=== PATIENT | male | born 1990 | race Caucasian/White ===

== ENCOUNTER 2016-11-20 17:39 | Emergency (ER) | payer BC ==
[~2016-11-20] VITALS: Ht 188 cm; Wt 81.1 kg
[2016-11-20 17:42] VITALS: Ht 188 cm; Wt 81.1 kg
--- OUTSIDE RECORDS SUMMARY | 2016-11-20 17:43 | XMS REPORT | Referral Summary ---
Author Author [facility] Organization [facility] Address Unknown Phone Unavailable Care Team Providers Care Ship Scaler Name Role Phone Christina Dasilva Primary Care Physician [phone] Encounter VC Date(s): 12/08/14 - 12/08/14 [facility], [facility] [address] [place] [address] [facility] Discharge Diagnosis: Depression Discharge Diagnosis: Anxiety disorder Discharge Disposition: 01-Home or Self Care Attending Physician: Vernon Dasilva DO Vital Signs Most recent to 1 oldest [Reference Range]: Temperature Oral 36.7 degC [35.8-37.3 degC] (12/08/14 3:24 PM) Peripheral Pulse 99 bpm Rate [60-100 bpm] (12/08/14 3:24 PM) Respiratory Rate 18 br/min [14-20 br/min] (12/08/14 3:24 PM) Blood Pressure 120/74 mmHg [90-140/60-90 mmHg] (12/08/14 3:24 PM) Problem List Condition Effective Dates Status Health Status Informant Peripheral Resolved neuropathy(Confirmed ) Tobacco Active patient user(Confirmed) Allergies, Adverse Reactions, Alerts Substance Reaction Severity Status Keflex1 Active 1Swelling. Medications clonazePAM 2 mg oral tablet 2 mg 1 tabs, Oral, BID, # 60 tabs, 0 Refill(s) Start Date: 05/16/15 Status: Ordered [place] 10 mg-325 mg oral tablet 1 tabs, Oral, q4hr, as needed for pain, # 50 tabs, 0 Refill(s) Start Date: 04/22/15 Status: Ordered venlafaxine 75 mg oral capsule, extended release 3 caps, Oral, Daily, # 90 caps, 5 Refill(s), Pharmacy: [facility] #[id number] , 3 caps Oral Daily Start Date: 11/10/14 Status: Ordered Results No data available for this section Immunizations Vaccine Date Refusal Reason human papillomavirus vaccine 03/25/12 influenza virus vaccine, live 03/25/12 Procedures Procedure Date Related Diagnosis Body Site H/O oral surgery 2009 peripheral neuropathy surgery1 2002 1free of disease Social History Social History Type Response Smoking Status Current every day smoker; Type: Cigarettes; Tobacco use per day: Pack Assessment and Plan Extracted from: Title: Depression Disease Author: Venron Dasilva DO Date: 12/08/14 Management * Impression and Plan Diagnosis Anxiety disorder (ICD9 300.00, Discharge, Medical). Depression (ICD9 311, Discharge, Medical). Patient Instructions: Counseled: Patient, Regarding diagnosis, Regarding treatment, Regarding medications, Diet, Activity, Verbalized understanding.
--- OUTSIDE RECORDS SUMMARY | 2016-11-20 17:43 | XMS REPORT | Referral Summary ---
Author Author [facility] Organization [facility] Address Unknown Phone Unavailable Care Team Providers Care Dehydration Plant Operator Name Role Phone Christina Dasilva Primary Care Physician [phone] Encounter VC Date(s): 12/08/14 - 12/08/14 [facility], [facility] [address] [place] [address] [facility] Discharge Diagnosis: Depression Discharge Diagnosis: [...] 0 Refill(s) Start Date: 05/16/15 Status: Ordered [place] 10 mg-325 mg oral tablet 1 tabs, Oral, q4hr, as needed for pain, # 50 tabs, 0 Refill(s) Start Date: 04/22/15 Status: Ordered venlafaxine 75 mg oral capsule, extended release 3 caps, Oral, Daily, # 90 caps, 5 Refill(s), Pharmacy: [facility] #[id number] , 3 caps Oral Daily Start Date: [...] Plan Extracted from: Title: Depression Disease Author: Vernon Dasilva DO Date: 12/08/14 Management * Impression and Plan Diagnosis Anxiety disorder (ICD9 300.00, Discharge, Medical). Depression (ICD9 311, Discharge, Medical). Patient Instructions: Counseled: Patient, Regarding diagnosis, Regarding treatment, Regarding medications, Diet, Activity, Verbalized understanding.
--- OUTSIDE RECORDS SUMMARY | 2016-11-20 17:43 | XMS REPORT | Referral Summary ---
Author Author [facility] Organization [facility] Address Unknown Phone Unavailable Care Team Providers Care Plow Mechanic Name Role Phone Christina Dasilva Primary Care Physician [phone] Encounter VC Date(s): 04/22/15 - 04/22/15 [facility] [address] [place] [address] [facility] Discharge Diagnosis: Chronic prostatitis Discharge Diagnosis: Atypical depression Discharge Diagnosis: Anxiety disorder Discharge Diagnosis: High risk sexual behavior Discharge Disposition: 01-Home or Self Care Attending Physician: Vernon Dasilva DO Vital Signs Most recent to 1 oldest [Reference Range]: Temperature Oral 36.8 degC [35.8-37.3 degC] (04/22/15 10:08 AM) Peripheral Pulse 83 bpm Rate [60-100 bpm] (04/22/15 10:08 AM) Respiratory Rate 14 br/min [14-20 br/min] (04/22/15 10:08 AM) Blood Pressure 120/68 mmHg [90-140/60-90 mmHg] (04/22/15 10:08 AM) SpO2 98 % (04/22/15 10:08 AM) Problem List Condition Effective Dates Status Health Status Informant Peripheral Resolved neuropathy(Confirmed ) Tobacco Active patient user(Confirmed) Allergies, Adverse Reactions, Alerts Substance Reaction Severity Status Keflex1 Active 1Swelling. Medications clonazePAM 1 mg oral tablet 1 mg 1 tabs, Oral, BID, # 60 tabs, 0 Refill(s), Indication: anxiety Start Date: 08/16/15 Status: Ordered clonazePAM 2 mg oral tablet 2 mg 1 tabs, Oral, BID, # 60 tabs, 0 Refill(s) Start Date: 07/20/15 Status: Ordered venlafaxine 75 mg oral capsule, extended release 3 caps, Oral, Daily, # 90 caps, 5 Refill(s), Pharmacy: [facility] #[id number] , 3 caps Oral Daily Start Date: 11/10/14 Status: Ordered Results Chemistry Most recent to 1 oldest [Reference Range]: Sodium Lvl [135-144 139 mEq/L mEq/L] (04/22/15 11:10 AM) Potassium Lvl 4.3 mEq/L [3.5-5.2 mEq/L] (04/22/15 11:10 AM) Chloride [99-111 105 mEq/L mEq/L] (04/22/15 11:10 AM) CO2 [23-31 mEq/L] 29 mEq/L (04/22/15 11:10 AM) AGAP [3-20] 5 (04/22/15 11:10 AM) BUN [9-21 mg/dL] 7 mg/dL *LOW* (04/22/15 11:10 AM) Glucose Lvl [70-99 91 mg/dL mg/dL] (04/22/15 1110 AM) Creatinine Lvl 0.89 mg/dL [1.00-1.70 mg/dL] *LOW* (04/22/15 11:10 AM) eGFR [>60 mL/min] >60 mL/min 1 (04/22/15 1110 AM) Calcium Lvl 10.0 mg/dL [8.9-10.5 mg/dL] (04/22/15 11:10 AM) Albumin Lvl [3.5-5.0 4.8 gm/dL gm/dL] (04/22/15 1110 AM) Total Protein 6.9 gm/dL [6.4-8.3 gm/dL] (04/22/15 11:10 AM) Globulin [1.8-4.0 2.1 gm/dL gm/dL] (04/22/15 11:10 AM) ALT [0-55 U/L] 14 U/L (04/22/15 1110 AM) AST [5-34 U/L] 16 U/L (04/22/15 11:10 AM) Alk Phos [40-150 83 U/L U/L] (04/22/15 1110 AM) Bili Total [0.2-1.2 0.6 mg/dL mg/dL] (04/22/15 11:10 AM) Hep A IgM Negative (04/22/15 11:10 AM) Hep Bs Ag Negative (04/22/15 11:10 AM) Hep C Ab Negative (04/22/15 11:10 AM) Hep B Core IgM Negative (04/22/15 11:10 AM) HIV 1 and 2 Abs Negative (04/22/15 11:10 AM) 1Result Comment: Multiply eGFR results by 1.21 for race. Immunizations Vaccine Date Refusal Reason human papillomavirus vaccine 03/25/12 influenza virus vaccine, live 03/25/12 Procedures Procedure Date Related Diagnosis Body Site Collection of venous blood by venipuncture 04/22/15 Collection of venous blood by venipuncture 04/22/15 Collection of venous blood by venipuncture 04/22/15 H/O oral surgery 2009 peripheral neuropathy surgery1 2002 1free of disease Social History Social History Type Response Smoking Status Current every day smoker; Type: Cigarettes; Tobacco use per day: Pack Assessment and Plan Extracted from: Title: Anxiety * Author: Vernon Dasilva DO Date: 04/22/15 Impression and Plan Diagnosis High risk sexual behavior ([id number]-UY Z72.51, Discharge, Medical). Chronic prostatitis (QTD85-PQ N41.1, Discharge, Medical). Atypical depression (WHA34-JM F32.8, Discharge, Medical). Anxiety disorder (EIP58-AD F41.9, Discharge, Medical). Plan: Procedure: Make healthy choices.. Patient Instructions: Counseled: Patient, Guardian, Regarding diagnosis, Activity, Smoking cessation, Verbalized understanding, Patient was reminded to make healthy choices..
--- OUTSIDE RECORDS SUMMARY | 2016-11-20 17:43 | XMS REPORT | Referral Summary ---
Author Author [facility] Organization [facility] Address Unknown Phone Unavailable Care Team Providers Care Train Dispatcher Name Role Phone Christina Dasilva Primary Care Physician [phone] Encounter VC Date(s): 06/01/16 - 06/01/16 [facility] [address] [place] [address] [facility] Discharge Diagnosis: Pharyngitis Discharge Diagnosis: Anxiety Discharge Disposition: 01-Home or Self Care Attending Physician: Pily Bucio Vital Signs Most recent to 1 oldest [Reference Range]: Temperature Oral 36.7 degC [35.8-37.3 degC] (06/01/16 1:35 PM) Peripheral Pulse 93 bpm Rate [60-100 bpm] (06/01/16 1:35 PM) Respiratory Rate 16 br/min [14-20 br/min] (06/01/16 1:35 PM) Blood Pressure 104/60 mmHg [90-140/60-90 mmHg] (06/01/16 1:35 PM) SpO2 98 % (06/01/16 1:35 PM) Problem List Condition Effective Dates Status Health Status Informant Peripheral Resolved neuropathy(Confirmed ) Tobacco Active patient user(Confirmed) Allergies, Adverse Reactions, Alerts Substance Reaction Severity Status Keflex1 Active 1Swelling. Medications clonazePAM 1 mg oral tablet 1 mg 1 tabs, Oral, BID, to use as needed only., # 60 tabs, 0 Refill(s), Indication: anxiety Start Date: 06/01/16 Status: Ordered famciclovir 125 mg oral tablet 125 mg 1 tabs, Oral, Daily, # 30 tabs, 7 Refill(s), Pharmacy: [facility] # [id number], 1 tabs Oral Daily Start Date: 02/27/16 Status: Ordered loratadine 10 mg oral tablet 10 mg 1 tabs, Oral, Daily, for drainage, # 30 tabs, 0 Refill(s), Pharmacy: [facility] #[id number], 1 tabs Oral Daily,Instr:for drainage Start Date: 06/01/16 Status: Ordered venlafaxine 225 mg oral tablet, extended release 225 mg 1 tabs, Oral, Daily, # 30 tabs, 5 Refill(s), Pharmacy: [facility] # [id number], 1 tabs Oral Daily Start Date: 06/01/16 Status: Ordered Results No data available for this section Immunizations Vaccine Date Refusal Reason human papillomavirus vaccine 03/25/12 influenza virus vaccine, live 03/25/12 Procedures Procedure Date Related Diagnosis Body Site H/O oral surgery 2009 peripheral neuropathy surgery1 2002 1free of disease Social History Social History Type Response Smoking Status Current every day smoker; Type: Cigarettes; Tobacco use per day: Between 1/4 pack and 1/2 pack Assessment and Plan No data available for this section
--- OUTSIDE RECORDS SUMMARY | 2016-11-20 17:43 | XMS REPORT | Referral Summary ---
Author Organization Unknown Address Unknown Phone Unavailable Care Team Providers Care Chief Security Officer Name Role Phone BryantaylinChristina Primary Care Physician [phone] Encounter VC Date(s): 11/04/14 - 11/04/14 [facility], [facility] [address] [place], [place] [address] Discharge Diagnosis: High risk sexual behavior Discharge Diagnosis: Peripheral neuropathy Discharge Diagnosis: Tobacco user Discharge Diagnosis: Chronic prostatitis Discharge Disposition: Home or Self Care Attending Physician: Tam Brand MD Admitting Physician: Tam Brand MD Vital Signs Most recent to 1 oldest [Reference Range]: Respiratory Rate 18 br/min [14-20 br/min] (11/04/14 10:53 AM) Blood Pressure 110/80 mmHg [90-140/60-90 mmHg] (11/04/14 10:53 AM) Problem List Condition Effective Dates Status Health Status Informant Peripheral Resolved neuropathy(Confirmed ) Tobacco Active patient user(Confirmed) Allergies, Adverse Reactions, Alerts Substance Reaction Severity Status Keflex1 Active 1Swelling. Medications Bactrim DS 800 mg-160 mg oral tablet 1 tabs, Oral, BID, # 60 tabs, 0 Refill(s), Pharmacy: [facility] #[id number] Start Date: 10/08/14 Stop Date: 11/08/14 Status: Ordered Cipro 500 mg oral tablet 1 tabs, Oral, q12hr, X 30 days, # 60 tabs, 1 Refill(s), Pharmacy: [facility] #[id number], 1 tabs Oral q12hr,x30 days Start Date: 11/04/14 Stop Date: 01/03/15 Status: Ordered citalopram 20 mg oral tablet 1 tabs, Oral, Daily, # 30 tabs, 0 Refill(s) Start Date: 10/08/14 Status: Ordered clonazePAM 2 mg oral tablet 1 tabs, Oral, BID, # 60 tabs, 0 Refill(s) Start Date: 10/08/14 Status: Ordered traZODone 150 mg oral tablet 1 tabs, Oral, Bedtime (once a day), # 30 tabs, 1 Refill(s), Pharmacy: [facility] #[id number], 1 tabs Oral Bedtime (once a day) Start Date: 08/02/14 Status: Ordered venlafaxine 150 mg oral tablet, extended release 1 tabs, Oral, Daily, # 30 tabs, 3 Refill(s), Pharmacy: [facility] #[id number] , 1 tabs Oral Daily Start Date: 10/08/14 Status: Ordered Results No data available for [...] Pack Assessment and Plan Extracted from: Title: Ambulatory Patient Education Author: Tam Brand MD Date: Family Medicine Prostatitis Prostatitis is redness, soreness, and puffiness (swelling ) of the prostate gland. The prostate gland is the walnut-sized gland located just below your bladder. HOME CARE: Take all medicines as told by your doctor. Take warm-water baths (sitz baths ) as told by your doctor. GET HELP IF: Your symptoms get worse, not better. You have a fever. GET HELP RIGHT AWAY IF: You have chills. You feel sick to your stomach (nauseous ) or like you will throw up (vomit ). You feel lightheaded or like you will pass out (faint ). You are unable to pee (urinate ). You have blood or blood clumps (clots ) in your pee (urine ). MAKE SURE YOU: Understand these instructions. Will watch your condition. Will get help right away if you are not doing well or get worse. Document Released: 12/30/2012 Document Revised: 03/03/2014 Document Reviewed: [facility] Patient Information [address] [employer] [facility]. No follow up information was provided.
--- OUTSIDE RECORDS SUMMARY | 2016-11-20 17:43 | XMS REPORT | Continuity of Care Document ---
Author Author [facility] Organization [facility] Address Unknown Phone Unavailable Allergies Active Description Code Type Severity Reaction Onset Reported/Identified Relationship to Patient Clinical Status Yes No Known Medication Allergies NKMA N/A N/A 03/04/2014 Yes Keflex NKMA N/A N/A 10/08/2014 Yes cephalexin cephalexin Drug Allergy Mild . 09/03/2015 Medications Problems Date Dx Coded Attending Type Code Diagnosis Diagnosed By 07/08/2012 Tremaine Anaya MD Final 305.1 TOBACCO USE DISORDER 07/08/2012 Tremaine Anaya MD Final 522.5 PERIAPICAL ABSCESS 07/08/2012 Tremaine Anaya MD Admitting 525.9 DENTAL DISORDER NOS 07/08/2012 Tremaine Anaya MD 784.2 SWELLING IN HEAD NECK Procedures Results Encounters ACCT No. Visit Date/Time Discharge Status Pt. Type Provider Facility Loc./Unit Complaint [id number] 07/08/2012 15:13:00 2011 16:49:00 DIS Emergency Tremaine Anaya MD Via [facility] on [address]
--- OUTSIDE RECORDS SUMMARY | 2016-11-20 17:43 | XMS REPORT | Continuity of Care Document ---
Author Author Vernon Dasilva DO Ambulatory Address [address] [place] [address] Phone Care Team Providers Care Underground Truck Operator Name Role Phone Vernon Dasilva PP Unavailable Payers Payer name Insurance type Covered libertarian ID Authorization(s) Unknown Problems Condition Effective Dates (start - stop) Clinical Status Anxiety - *Acute Depression - *Chronic NEED FOR PROPHYLACTIC VACCINATION AND INOCULATION, OTHER VIRAL DISEASES - Influenza Vaccine - Sexual behavior, high risk - *Routine Genital herpes, unspecified - *Acute Genital warts - *Acute Other specified disease of hair and hair follicles - *Acute Pain in joint involving pelvic region and thigh - *Acute Lumbago - *Acute Pain in limb - *Acute Herpes simplex without mention of complication - *Acute Anxiety - *Chronic Depression - *Chronic Unspecified hearing loss - *Routine Depression - *Chronic Anxiety - *Poor control Depression - *Poor control Cellulitis and abscess of other specified sites - *Acute Other specified viral warts - *Acute High-risk sexual behavior - *Acute Pain in limb - *Acute Cellulitis and abscess of unspecified sites - *Acute Cellulitis - *Acute Pain in limb - *Worse Cellulitis and abscess of unspecified sites - *Acute Pain in joint involving lower leg - *Acute Depression - *Chronic Anxiety - *Chronic Insomnia, Other - *Chronic Nausea alone - Recurrent Contact dermatitis and other eczema, unspecified cause - *Acute Other atopic dermatitis and related conditions - *Acute Acute bronchitis - *Acute Acute pharyngitis - *Acute Herpes simplex without mention of complication - *Acute Depression - *Chronic Anxiety - *Chronic Anxiety state, unspecified - *Poor control High-risk sexual behavior - *Routine Cellulitis - *Acute Anxiety - *Chronic Insomnia, Other - *Acute Family History Family Member Diagnosis Age At Onset Status Family h/o (Unknown) Hypertension Yes Father (Unknown) Hypertension Yes Social History Social History Element Description Quantity Unknown Allergies, Adverse Reactions, Alerts Substance Reaction Severity Status Unknown Medications Medication Instructions Dosage Effective Dates (start - stop) Status clonazepam 1 mg tablet take 0.5 - 1 Tablet (0.5MG) by ORAL route 2 times every day as needed for anxiety 0.5 MG - Active Aldara 5 % topical cream packet apply by TOPICAL route 3- 5 times every week to affected area(s) 0 - Active Famvir 500 mg tablet take 1 tablet (500MG) by oral route 2 times every day as directed. 500 MG - Active promethazine 25 mg tablet take 1 tablet (25MG) by ORAL route every bedtime prn 25 MG - Active citalopram 20 mg tablet take 1 tablet (20MG) by oral route every day 20 MG - Active Seroquel XR 50 mg tablet,extended release take 1 by Oral route every day in evening 0 - Active clonazepam 2 mg tablet take 0.5 - 1 Tablet (1MG) by oral route 2 times every day 1 MG - Active Immunizations Vaccine Date Status Comments HPV (quadrivalent) completed flu (split) preservative free, 3 yrs or older completed Results Test Name Date and Time Measure Units Reference Range Abnormal Flag Comments Unknown Vital Signs Date / Time: Height Weight Pulse Rate Blood Pressure Temperature /07:45:00 73.00 in 183.00 lbs 78 /min 120/76 mm[Hg] 98.2 F Procedures Procedure Date Unknown Encounters Encounter Location Date Patient Visit [facility] Patient Visit [facility] Patient Visit [facility] Patient Visit [facility] Patient Visit [facility] Patient Visit [facility] Patient [facility] Patient Visit [facility] Patient Visit [facility] Patient Visit [facility] Patient Visit [facility] Patient Visit [facility] Patient Visit [facility] Patient Visit [facility] Patient Visit [facility] Patient Visit [facility] Patient Visit [facility] Patient Visit [facility] Patient Visit [facility] Advance Directives Directive Effective Date Unknown
--- OUTSIDE RECORDS SUMMARY | 2016-11-20 17:43 | XMS REPORT | Referral Summary ---
Author Author [facility] Organization [facility] Address Unknown Phone Unavailable Care Team Providers Care Low Pressure Boiler Operator Name Role Phone Christina Dasilva Primary Care Physician [phone] Encounter VC Date(s): 11/10/14 - 11/10/14 [facility] [address] [place] [address] [facility] Discharge Diagnosis: Anxiety and depression Discharge Disposition: 01-Home or Self Care Attending Physician: Vernon Dasilva DO Admitting Physician: Vernon aDsilva DO Vital Signs Most recent to 1 oldest [Reference Range]: Temperature Oral 36.7 degC [35.8-37.3 degC] (11/10/14 3:27 PM) Peripheral Pulse 82 bpm Rate [60-100 bpm] (11/10/14 3:27 PM) Respiratory Rate 16 br/min [14-20 br/min] (11/10/14 3:27 PM) Blood Pressure 114/78 mmHg [90-140/60-90 mmHg] (11/10/14 3:27 PM) Problem List Condition Effective Dates Status Health Status Informant Peripheral Resolved neuropathy(Confirmed ) Tobacco Active patient user(Confirmed) Allergies, Adverse Reactions, Alerts Substance Reaction Severity Status Keflex1 Active 1Swelling. Medications clonazePAM 2 mg oral tablet 2 mg 1 tabs, Oral, BID, # 60 tabs, 0 Refill(s) Start Date: 05/16/15 Status: Ordered [place] 10 mg-325 mg oral tablet 1 tabs, Oral, q4hr, as needed for pain, # 50 tabs, 0 Refill(s) Start Date: 04/22/15 Status: Ordered venlafaxine 75 mg oral capsule, extended release 3 caps, Oral, Daily, # 90 caps, 5 Refill(s), Pharmacy: [facility] #[id number] , 3 caps Oral Daily Start Date: [...] Anxiety * Author: Vernon Dasilva DO Date: 11/10/14 Impression and Plan Diagnosis Anxiety and depression (ICD9 300.4, Discharge, Medical). Course: Progressing as expected. Patient Instructions: Counseled: Patient, Regarding diagnosis, Regarding treatment, Regarding medications, Activity, discussed effects of meds and pt agreed..
--- OUTSIDE RECORDS SUMMARY | 2016-11-20 17:43 | XMS REPORT | Referral Summary ---
Author Author [facility] Organization [facility] Address Unknown Phone Unavailable Care Team Providers Care Stone Trimmer Name Role Phone Christina Dasilva Primary Care Physician [phone] Encounter VC Date(s): 04/22/15 - 04/22/15 [facility] [address] [place] [address] [facility] Discharge Diagnosis: Chronic prostatitis Discharge Diagnosis: Atypical [...] Reaction Severity Status Keflex1 Active 1Swelling. Medications Cipro 500 mg oral tablet 500 mg 1 tabs, Oral, q12hr, X 14 days, # 28 tabs, 0 Refill(s), Pharmacy: [facility] #[id number], 1 tabs Oral q12hr,x14 days Start Date: 04/22/15 Stop Date: 05/06/15 Status: Ordered clonazePAM 2 mg oral tablet 2 mg 1 tabs, Oral, BID, # 60 tabs, 0 Refill(s) Start Date: 04/10/15 Status: Ordered [place] 10 mg-325 mg oral tablet 1 tabs, Oral, q4hr, as needed for pain, # 50 tabs, 0 Refill(s) Start Date: 04/22/15 Status: Ordered venlafaxine 75 mg oral capsule, extended release 3 caps, Oral, Daily, # 90 caps, 5 Refill(s), Pharmacy: [facility] #[id number] , 3 caps Oral Daily Start Date: 11/10/14 Status: Ordered Results Chemistry Most recent to 1 oldest [Reference Range]: Sodium Lvl [135-144 139 mEq/L mEq/L] (04/22/15 11:10 AM) Potassium Lvl 4.3 mEq/L [3.5-5.2 mEq/L] (04/22/15 1110 AM) Chloride [99-111 105 mEq/L mEq/L] (04/22/15 1110 AM) CO2 [23-31 mEq/L] 29 mEq/L (04/22/15 1110 AM) AGAP [3-20] 5 (04/22/15 11:10 AM) BUN [9-21 mg/dL] 7 mg/dL *LOW* (04/22/15 11:10 AM) Glucose Lvl [70-99 91 mg/dL mg/dL] (04/22/15 1110 AM) Creatinine Lvl 0.89 mg/dL [1.00-1.70 mg/dL] *LOW* (04/22/15 11:10 AM) eGFR [>60 mL/min] >60 mL/min 1 (04/22/1510 AM) Calcium Lvl 10.0 mg/dL [8.9-10.5 mg/dL] (04/22/15 1110 AM) Albumin Lvl [3.5-5.0 4.8 gm/dL gm/dL] (04/22/15 1110 AM) Total Protein 6.9 gm/dL [6.4-8.3 gm/dL] (04/22/15 1110 AM) Globulin [1.8-4.0 2.1 gm/dL gm/dL] (04/22/15 1110 AM) ALT [0-55 U/L] 14 U/L (04/22/15 11:10 AM) AST [5-34 U/L] 16 U/L (04/22/15 11:10 AM) Alk Phos [40-150 83 U/L U/L] (04/22/15 11:10 AM) Bili Total [0.2-1.2 0.6 mg/dL mg/dL] [...] and Plan Diagnosis High risk sexual behavior (KDD69-NO Z72.51, Discharge, Medical). Chronic prostatitis (CPR26-FU N41.1, Discharge, Medical). Atypical depression (DEG99-HC F32.8, Discharge, Medical). Anxiety disorder (TAF77-AJ F41.9, Discharge, Medical). Plan: Procedure: Make healthy choices.. Patient Instructions: Counseled: Patient, Guardian, Regarding diagnosis, Activity, Smoking cessation, Verbalized understanding, Patient was reminded to make healthy choices..
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
--- OUTSIDE RECORDS SUMMARY | 2016-11-20 17:44 | XMS REPORT | Referral Summary ---
Author Organization Unknown Address Unknown Phone Unavailable Care Team Providers Care Kindergarten Paraprofessional Name Role Phone Christina Dasilva Primary Care Physician [phone] Encounter VC Date(s): 11/10/14 - 11/10/14 [facility], [place] [facility], [facility] [address] [place] [address] [facility] Discharge Diagnosis: Anxiety and depression Discharge Disposition: Home or Self Care Attending Physician: Vernon Dasilva DO Admitting Physician: Vernon Dasilva DO Vital Signs Most [...] 1Swelling. Medications clonazePAM 2 mg oral tablet 1 tabs, Oral, BID, # 60 tabs, 0 Refill(s) Start Date: 11/10/14 Status: Ordered venlafaxine 75 mg oral capsule, extended release 3 caps, Oral, Daily, # 90 caps, 5 Refill(s), Pharmacy: [facility] #[id number] , 3 caps Oral Daily Start Date: [...]
--- OUTSIDE RECORDS SUMMARY | 2016-11-20 17:44 | XMS REPORT | Referral Summary ---
Author Author [facility] Organization [facility] Address Unknown Phone Unavailable Care Team Providers Care Object Oriented Developer Name Role Phone Christina Dasilva Primary Care Physician [phone] Encounter VC Date(s): 12/05/15 - 12/05/15 [facility] [address] [place] [address] [facility] Discharge Diagnosis: Tooth pain Discharge Disposition: 01-Home or Self Care Attending Physician: Rosalba David Attending Physician: Provider, Immediate Care Admitting Physician: Provider, Immediate Care Vital Signs Most recent to 1 oldest [Reference Range]: Temperature Oral 37.1 degC [35.8-37.3 degC] (12/05/15 6:52 PM) Peripheral Pulse 98 bpm Rate [60-100 bpm] (12/05/15 6:52 PM) Blood Pressure 144/88 mmHg [90-140/60-90 mmHg] *HI* (12/05/15 6:52 PM) Mean Arterial 107 mmHg Pressure, Cuff (12/05/15 6:52 PM) SpO2 100 % (12/05/15 6:52 PM) Problem List Condition Effective Dates Status Health Status Informant Peripheral Resolved neuropathy(Confirmed ) Tobacco Active patient user(Confirmed) Allergies, Adverse Reactions, Alerts Substance Reaction Severity Status Keflex1 Active 1Swelling. Medications amoxicillin 875 mg oral tablet 875 mg 1 tabs, Oral, BID, X 7 days, # 14 tabs, 0 Refill(s), Pharmacy: [facility] #[id number], 1 tabs Oral BID,x7 days Start Date: 12/05/15 Stop Date: 12/12/15 Status: Ordered clonazePAM 1 mg oral tablet 1 mg 1 tabs, Oral, BID, # 60 tabs, 0 Refill(s), Indication: anxiety Start Date: 11/22/15 Status: Ordered Results No data available for [...] Pack Assessment and Plan Extracted from: Title: Office Visit Note Author: Rosalba David Date: 12/05/15 Assessment/Plan 1.Tooth pain Patient needs to follow-up with dentistry. Amoxicillin prescription is extended one week. Amoxicillin 875 mg twice a day for 7 days. Patient voices understanding. Ordered: Office Visit Level 3 Est [id number] Orders: amoxicillin, 875 mg 1 tabs, Oral, BID, X 7 days, # 14 tabs, 0 Refill(s ), Pharmacy: [facility] #[id number], 1 tabs Oral BID,x7 days
--- OUTSIDE RECORDS SUMMARY | 2016-11-20 17:44 | XMS REPORT | Continuity of Care Document ---
Author Author [facility] Address Unknown Phone Unavailable Care Team Providers Care Deep Submergence Vehicle Crewmember Name Role Phone Vernon Dasilva ZAHRA Unavailable Payers Payer name Insurance type Covered green party ID Authorization(s) Unknown Problems Condition Effective Dates (start - stop) Clinical Status Anxiety - *Poor control Depression - *Poor control NEED FOR PROPHYLACTIC VACCINATION AND INOCULATION, OTHER [...] - *Routine Depression - *Chronic Anxiety - *Acute Depression - *Chronic Cellulitis and abscess of other specified sites [...] Effective Dates (start - stop) Status clonazepam 2 mg tablet take 0.5 - 1 Tablet (1MG) by oral route 2 times every day 1 MG - Active citalopram 20 mg tablet take 1 tablet (20MG) by oral route every day 20 MG - Active Seroquel XR 50 mg tablet,extended release take 1 by Oral route every day in evening 0 - Active citalopram 20 mg tablet take 1 tablet (20MG) by oral route every day 20 MG - No Longer Active Aldara 5 % topical cream packet apply by TOPICAL route 3- 5 times every week to affected area(s) 0 - Active Famvir 500 mg tablet take 1 tablet (500MG) by oral route 2 times every day as directed. 500 MG - Active promethazine 25 mg tablet take 1 tablet (25MG) by ORAL route every bedtime prn 25 MG - Active clonazepam 1 mg tablet take 0.5 - 1 Tablet (0.5MG) by ORAL route 2 times every day as needed for anxiety 0.5 MG - Active Immunizations Vaccine Date Status Comments HPV (quadrivalent) completed flu (split) preservative free, 3 yrs or older completed Results Test Name Date and Time Measure Units Reference Range Abnormal Flag Comments Unknown Vital Signs Date / Time: Height Weight Pulse Rate Blood Pressure Temperature /10:25:00 73.00 in 172.00 lbs 88 /min 102/76 mm[Hg] 99.1 F Procedures Procedure Date Unknown Encounters Encounter Location Date Patient Visit [facility] Patient Visit [facility] Patient Visit [facility] Patient Visit [facility] Patient Visit [facility] Patient Visit [facility] Patient Visit [facility] Patient Visit [facility] Patient Visit [facility] Patient Visit [facility] Patient Visit [facility] Patient Visit [facility] Patient Visit [facility] Patient Visit [facility] Patient Visit [facility] Patient Visit [facility] Patient Visit [facility] Patient Visit [facility] Advance Directives Directive Effective Date Unknown
--- OUTSIDE RECORDS SUMMARY | 2016-11-20 17:44 | XMS REPORT | Referral Summary ---
Author Author [facility] Organization [facility] Address Unknown Phone Unavailable Care Team Providers Care Marketing Project Coordinator Name Role Phone Christina Dasilva Primary Care Physician [phone] Encounter VC Date(s): 02/27/16 - 02/27/16 [facility] [address] [place] [address] [place] Discharge Diagnosis: Disorder of thyroid Discharge Diagnosis: High risk medication use Discharge Diagnosis: H/O herpes simplex infection Discharge Diagnosis: Anxiety Discharge Diagnosis: High-risk sexual behavior Discharge Diagnosis: Diabetes mellitus screening Discharge Disposition: 01-Home or Self Care Attending Physician: Vernon Dasilva DO Vital Signs Most recent to 1 oldest [Reference Range]: Peripheral Pulse 72 bpm Rate [60-100 bpm] (02/27/16 9:18 AM) Respiratory Rate 12 br/min [14-20 br/min] *LOW* (02/27/16 9:18 AM) Blood Pressure 148/90 mmHg [90-140/60-90 mmHg] *HI* (02/27/16 9:18 AM) Problem List Condition Effective Dates Status Health Status Informant Peripheral Resolved neuropathy(Confirmed ) Tobacco Active patient user(Confirmed) Allergies, Adverse Reactions, Alerts Substance Reaction Severity Status Keflex1 Active 1Swelling. Medications clonazePAM 1 mg oral tablet 1 mg 1 tabs, Oral, BID, # 60 tabs, 0 Refill(s), Indication: anxiety Start Date: 02/27/16 Status: Ordered famciclovir 125 mg oral tablet 125 mg 1 tabs, Oral, Daily, # 30 tabs, 7 Refill(s), Pharmacy: [facility] # [id number], 1 tabs Oral Daily Start Date: 02/27/16 Status: Ordered venlafaxine 150 mg oral tablet, extended release 150 mg 1 tabs, Oral, Daily, # 30 tabs, 6 Refill(s), Pharmacy: [facility] # [id number], 1 tabs Oral Daily Start Date: 02/27/16 Status: Ordered Results Chemistry Most recent to 1 oldest [Reference Range]: Sodium Lvl [135-144 141 mEq/L mEq/L] (02/27/16 10:02 AM) Potassium Lvl 3.9 mEq/L [3.5-5.2 mEq/L] (02/27/16 10:02 AM) Chloride [99-111 105 mEq/L mEq/L] (02/27/16 10:02 AM) CO2 [23-31 mEq/L] 27 mEq/L (02/27/16 10:02 AM) AGAP [3-20] 9 (02/27/16 10:02 AM) BUN [9-21 mg/dL] 8 mg/dL *LOW* (02/27/16 10:02 AM) Glucose Lvl [70-99 101 mg/dL mg/dL] *HI* (02/27/16 10:02 AM) Creatinine Lvl 0.81 mg/dL [1.00-1.70 mg/dL] *LOW* (02/27/16 10:02 AM) eGFR [>60 mL/min] >60 mL/min 1 (02/27/16 10:02 AM) Calcium Lvl 9.4 mg/dL [8.9-10.5 mg/dL] (02/27/16 10:02 AM) Albumin Lvl [3.5-5.0 4.7 gm/dL gm/dL] (02/27/16 10:02 AM) Total Protein 6.3 gm/dL 2 [6.1-7.7 gm/dL] (02/27/16 10:02 AM) Globulin [1.8-4.0 1.6 gm/dL gm/dL] *LOW* (02/27/16 10:02 AM) ALT [0-55 U/L] 15 U/L (02/27/16 10:02 AM) AST [5-34 U/L] 15 U/L (02/27/16 10:02 AM) Alk Phos [40-150 78 U/L U/L] (8/15/16 10:02 AM) Bili Total [0.2-1.2 0.7 mg/dL mg/dL] (02/27/16 10:02 AM) Hep A IgM Negative (02/27/16 10:02 AM) Hep Bs Ag Negative (02/27/16 10:02 AM) Hep C Ab Negative (02/27/16 10:02 AM) Hep B Core IgM Negative (02/27/16 10:02 AM) TSH with Reflex Free 2.03 T4 [0.35-4.94] (02/27/16 10:02 AM) Hgb A1c [4.1-5.6 %] 5.0 % (02/27/16 10:02 AM) eAvg Glucose 96.8 mg/dL (02/27/16 10:02 AM) 1Result Comment: Multiply eGFR results by 1.21 for race. 2Result Comment: Please note new reference range for adult Protein. Immunizations Vaccine Date Refusal Reason human papillomavirus vaccine 03/25/12 influenza virus vaccine, live 03/25/12 Procedures Procedure Date Related Diagnosis Body Site Collection of venous blood by venipuncture 02/27/16 H/O oral surgery 2009 peripheral neuropathy surgery1 2002 1free of disease Social History Social History Type Response Smoking Status Current every day smoker; Type: Cigarettes; Tobacco use per day: Less than Pack Assessment and Plan No data available for this section
--- NOTE | 2016-11-20 17:55 | NUR ---
PROVIDER Jose ROBB [employer] PERSON IN TO SEE PATIENT.
[2016-11-20] MEDS ORDERED: NO DAILY MEDS (17:56)
[2016-11-20] MEDS ORDERED: BUPIVACAINE 0.5%/EPI 1:200K *DENTAL* 1.8ml SYRINGE INJ ONE (18:00)
[2016-11-20] MEDS ORDERED: CLINDAMYCIN 300 MG CAPSULE PO ONE (18:00)
--- NOTE | 2016-11-20 18:04 | ERPDOC ---
Departure Disposition Decision Date: November 20, 2016 Disposition Decision Time: 18:13 Disposition: 01 DISCHARGED HOME, SELF-CARE Impression Impression Impression: Primary Impression: Abscess, dental Severity: Moderate Condition: Stable Seen By: Mid-level only Patient Instructions: Dental Abscess (ED) Problems/Meds/Labs Reviewed?: Yes Medications reviewed and manag: Yes Additional Instructions: Take the Clindamycin as prescribed. I do want you to call and set an appointment with a dentist for reevaluation over the next few weeks. May try [facility] at [phone] or [facility] at [phone]. If any further issues/concerns then return to ER. Follow up care ordered?: Yes Mental Status: Alert, Oriented Scripts Hydrocodone/Acetaminophen ([place] 5-325 Tablet) 5-325 Tablet 1 TAB PO Q6H Y for PAIN, #12 TAB 0 Refills Prov: MARTHA ROBB APRN 11/20/16 Clindamycin HCl (Clindamycin HCl) 150 Mg Capsule 2 CAP PO QID, #80 CAP 0 Refills TAKE WITH A FULL GLASS OF WATER TO AVOID ESOPHAGEAL IRRITATION. Prov: MARTHA ROBB APRN 11/20/16 HPI General Chief Complaint: Toothache Stated Complaint: FACE SWOLLEN,TOOTH PAIN, Time Seen by Provider: 17:58 Source: patient Exam Limitations: no limitations HPI Dental Initial Comments He has a tooth on the right upper jaw that is fractured. For the last several days he has had pain and swelling. He has noted that the gum is swollen as well. Denies any fever or chills at home. Has not been evaluated by a dentist so far either. Is having right upper jaw facial swelling Occurred At: home Onset: Gradual Duration: other (Over the last 2 days) Severity: moderate Location: R upper 1 - area of pain and swelling Problem: fractured tooth Associated Symptoms: facial swelling, gum swelling, DENIES: cheek swelling, cough, dental trauma, diarrhea, drooling, dyspnea, fever, fractured tooth, gum laceration, headache, high pitched cry/voice, hoarseness, impacted tooth, loose tooth, nausea, retained foreign body, rhinorrhea, sinus drainage, sinus pain, trouble chewing, trouble swallowing, vomiting Allergies: Coded Allergies: cephalexin (Verified Allergy, Intermediate, HIVES, 11/20/16) Past History Past Medical History Pt denies signifigant PMH Surgical History Denies Surgeries Family History Family History: Negative Review of Systems Constitutional Constitutional: DENIES: chills, dizziness, fatigue, fever, weakness Eyes Vision: DENIES: blurring, double vision ENMT Ears: DENIES: drainage, pain Sinuses: DENIES: congestion, rhinorrhea Mouth/Throat: DENIES: painful swallowing, scratchy throat, sore throat Teeth: pain (right upper dental pain with swelling of the gums around the tooth ) Neurological General: DENIES: headache, numbness, tingling, weakness Exam General General Nourishment: well nourished, well developed, appears stated age, no acute distress, adult General Body Habitus: well groomed Vital Signs: RN Vital Signs have been reviewed: Yes, Temperature: 98.3, Source : Oral, Heart Rate: 91, Respiratory Rate: 14, BP: 123/78, Pulse Oximetry: 96 Height (Feet): 6 Height (Inches): 2.00 [place] Dental Face: swelling (right upper dental/facial swelling), tender (over the area of facial swelling), NOT FOUND: asymmetry, bruising, erythema, numbness, weakness Jaw: NOT FOUND: asymmetry, trismus Gums: moist, pink, swelling (around the right upper canine), NOT FOUND: exudate , lesion Teeth: fractures (right upper jaw) Pharynx: NOT FOUND: erythema, exudate, lateral pillar signs, swelling, uvular deviation Tonsils: NOT FOUND: erythema, exudate Neck: NOT FOUND: L anterior adenopathy, L posterior adenopathy, R anterior adenopathy, R posterior adenopathy Neurologic RN Documented GCS Eye Opening: Verbal: Motor: Total: Differential Diagnoses Considering: Gingival Abscess, Caries, Gingivitis, Tooth Fracture Procedures Procedures Performed Procedures Performed: Dental Block Dental Block Procedure Dental Block : Location: other (periapical at site of abscess) Method: external approach Anesthetic: 0.5% Bupivicaine Volume of Anesthetic (cc's): 0.5 Comments Abscess did go ahead and drain easily on its own once injected. Small amount of pus was expelled from abscess. Will have him start Clindamycin. Progress Results/Orders Orders Procedure Category Date Status Time Bupivacaine/Epi PHA 11/20/16 Complete *Dental* ([facility] 18:00 Clindamycin (Cleocin) PHA 11/20/16 Complete 18:00 Medications Current ED Medications Clindamycin HCl (Cleocin) 300 mg O ONCE PO Last administered on 11/20/16 18:04 ; Start 11/20/16 at 18:00; Stop 11/20/16 at 18:01; Status DC Bupivacaine HCl/ Epinephrine Bitart ([facility] *Dental*) 1.8 ml O ONCE INJ Last administered on 11/20/16 18:04; Start 11/20/16 at 18:00; Stop 11/20/16 at 18: 01; Status DC Progress Progress Take the Clindamycin as prescribed. [place] as needed for pain. FU with dentist for reevaluation. Return to Er with any worsening symptoms. MARTHA ROBB APRN November 20, 2016 18:04
--- OUTSIDE RECORDS SUMMARY | 2016-11-20 18:04 | XMS REPORT | Continuity of Care Document ---
Author Author [facility] Organization [facility] Address Unknown Phone Unavailable Allergies Active Description [...] Status Pt. Type Provider Facility Loc./Unit Complaint [id number] 07/08/2012 15:13:00 2011 16:49:00 DIS Emergency Tremaine Anaya MD [facility] on [address] [place]
--- NOTE | 2016-11-20 18:08 | NUR ---
PROVIDER Jose ROBB DIRECTOR OF MEDICAL EDUCATION IN TO USE [place].
[2016-11-20] MEDS ORDERED: CLIN-89 PO (18:16)
[2016-11-20] MEDS ORDERED: HYDR-4246 PO (18:16)
[2016-11-20 18:22] VITALS: BP 123/78; PULSE 91; RESP 14; TEMP 98.3; O2SAT 96
== END 2016-11-20 18:22 | disposition home or self-care (01) ==
LOC: ED 17:39
DX: K04.7 Periapical abscess without sinus (principal)
CPT/HCPCS: 64400; 99283; S0020